=== PATIENT | male | born 1950 | race Caucasian/White ===

== ENCOUNTER 2016-10-24 04:53 | Observation (INO) | payer BC ==
[2016-10-20 08:38] VITALS: BMI 32.0
--- NOTE | 2016-10-20 09:19 | PAT Medication Instructions ---
Service Date Oct 20, 2016. Current Home Medication List Amlodipine (Norvasc), 5 MG PO QAM Atenolol (Tenormin), 50 MG PO QAM Cholecalciferol (Vitamin D3), 1 TAB PO PRN Lisinopril (Zestril), 20 MG PO QAM Spironolactone (Aldactone), 50 MG PO QAM Medication Instructions For Your Scheduled Surgery - Hold the following medications the morning of surgery: Spironolactone (Aldactone), 50 MG PO QAM Lisinopril (Zestril), 20 MG PO QAM Cholecalciferol (Vitamin D3), 1 TAB PO PRN - Take the following medications the morning of surgery with a sip of water: Amlodipine (Norvasc), 5 MG PO QAM Atenolol (Tenormin), 50 MG PO QAM If you have any questions please call us at [phone] or [phone] ( Gela) or [phone]
[2016-10-20 09:50] LABS: BASO % 0.3 %; BASO ABS # 0.02 K/uL (0-0.2); COMPLETE YES; EOS % 3.1 %; HEMATOCRIT 43.8 % (42-52); IG% 0.8 %; LYMPH ABS # 0.67 K/uL (1.2-3.4); MEAN CELL VOLUME 87.8 fL (80-100); MEAN CORPUSCULAR HEMOGLOBIN 30.3 pg (25-34); MEAN CORPUSCULAR HGB CONC 34.5 g/dl (32-36); MEAN PLATELET VOLUME 11.3 fL (7.4-10.4); NEUT % 72.8 %; PLATELET COUNT 109 K/uL (130-400); RED BLOOD COUNT 4.99 M/uL (4.7-6.1); WHITE BLOOD COUNT 6.08 K/uL (4.8-10.8)
[2016-10-20 10:44] LABS: ALB/GLOB RATIO 1.1 (0.9-2); BUN/CREATININE RATIO 18.3 (10-20); CALCIUM 9.6 mg/dl (8.5-10.1); CREATININE 1.4 mg/dl (0.60-1.40)
[2016-10-20 11:17] LABS: POTASSIUM 6.2 mmol/L (3.5-5.1)
[2016-10-20 12:29] LABS: BUN/CREATININE RATIO 15.2 (10-20); CALCIUM 9.3 mg/dl (8.5-10.1); CREATININE 1.6 mg/dl (0.60-1.40); POTASSIUM 5.2 mmol/L (3.5-5.1)
[2016-10-24] VITALS (10 sets, daily range): BP systolic 111–146; BP diastolic 68–89; PULSE 49–60; TEMP 36.7–36.9; O2SAT 92–100; Ht 180.3 cm; Wt 104.2 kg
[~2016-10-24] VITALS: Ht 180.3 cm; Wt 104.2 kg
[~2016-10-24 04:53] MED LIST: AMLO-110 PO; ATEN50TA8 PO; CHOL1000 PO; LISI-725 PO; SPIR50TA2 PO
[2016-10-24] MEDS ORDERED: CEFUROXIME IV 1,500 MG in DEXTROSE 5% 100ML IV SCH (06:00)
[2016-10-24] MEDS ORDERED: LACTATED RINGER'S 1000ML 1,000 ML IV SCH (06:00)
[2016-10-24 06:20] LABS: BUN/CREATININE RATIO 17.9 (10-20); CALCIUM 9.1 mg/dl (8.5-10.1); CREATININE 1.5 mg/dl (0.60-1.40); POTASSIUM 4.5 mmol/L (3.5-5.1)
[2016-10-24] MEDS ORDERED: PROPOFOL IV EMULSION 10 MG/ML 20 ML VIAL IV ONE (06:38)
[2016-10-24] MEDS ORDERED: DEXAMETHASONE SOD INJ 4 MG/ML VIAL ONE (06:38)
[2016-10-24] MEDS ORDERED: KETOROLAC TROMETHAMINE 30 MG/ML VIAL ONE (06:38)
[2016-10-24] MEDS ORDERED: ONDANSETRON INJ 2 MG/ML 2 ML VIAL ONE (06:38)
[2016-10-24] MEDS ORDERED: NEOSTIGMINE METHYLSULFATE 5 MG/5 ML SYR ONE (06:38)
[2016-10-24] MEDS ORDERED: ROCURONIUM BROMIDE 10 MG/ML 5 ML VIAL ONE (06:38)
[2016-10-24] MEDS ORDERED: GLYCOPYRROLATE INJ 0.2 MG/ML VIAL ONE (06:38)
[2016-10-24] MEDS ORDERED: MIDAZOLAM HCL 1 MG/ML 2ML VIAL ONE (06:39)
[2016-10-24] MEDS ORDERED: FENTANYL CITRATE INJ 50 MCG/1 ML 2 ML VIAL ONE (06:39)
--- NOTE | 2016-10-24 06:43 | History & Physical Bridge Note ---
H&P Re-Evaluation Bridge Note: I have examined the patient, reviewed the History & Physical and in the interval since the performance of the History & Physical I have noted the following changes of clinical significance: No changes noted
[2016-10-24] MEDS ORDERED: BUPIVACAINE 0.5 % 5 MG/1 ML MPF 30ML VIAL ONE (06:47)
[2016-10-24] MEDS ORDERED: CONRAY 60% 50 ML VIAL ONE (06:47)
[2016-10-24] MEDS ORDERED: ATROPINE SULFATE 1MG/2.5ML SYR ONE (07:30)
[2016-10-24] MEDS ORDERED: LIDOCAINE HCL 2% 2 ML VIAL (20MG/ML) ONE (07:36)
[2016-10-24] MEDS ORDERED: EpHEDrine SULFATE 50MG/5ML SYR ONE (07:39)
--- NOTE | 2016-10-24 08:07 | [facility] Post Operative Brief Note ---
Immediate Operative Summary Operative Date Oct 24, 2016. Pre-Operative Diagnosis Chronic Cholecystitis Post-Operative Diagnosis Chronic Cholecystitis, Umbilical Hernia, Gallbladder Mass/ polyp Procedure(s) Performed Laparascopic Cholecystectomy, Umbilical Hernia Repair Surgeon Dr. Kaveh Rouse Peanut Sheller Surgeon(s) Rafita Felix PA-C Estimated Blood Loss 10ml Findings 2 cm polyp/ mass tip of fundus, 1 cm umbilical hernia Specimens A.) Gallbladder and Contents B.) Hernia Contents Drains # 15 Rd CHERI to subhepatic space Anesthesia gen Complication(s) None Disposition Recovery Room / PACU
[2016-10-24] MEDS ORDERED: PROMETHAZINE HCL INJ 25 MG in SODIUM CHLORIDE 0.9% 50ML 50 ML IV PRN (08:15)
[2016-10-24] MEDS ORDERED: HYDROCODONE/ACETAMOPHEN 5/325MG TAB PO PRN (08:15)
[2016-10-24] MEDS ORDERED: HYDROmorphone INJ 1 MG/ML SYR IV PRN ×2 (08:15→08:30)
[2016-10-24] MEDS ORDERED: ONDANSETRON INJ 2 MG/ML 2 ML VIAL IV PRN ×2 (08:15→08:30)
[2016-10-24] MEDS ORDERED: HYDROmorphone INJ 0.5 MG/0.5 ML SYR IV PRN (08:15)
[2016-10-24] MEDS ORDERED: EpHEDrine SULFATE INJ 50 MG/ML AMP IV PRN (08:30)
[2016-10-24] MEDS ORDERED: IV FLUIDS COMPLETED PRN (08:30)
[2016-10-24] MEDS ORDERED: PROMETHAZINE HCL INJ 12.5 MG in SODIUM CHLORIDE 0.9% 50ML 50 ML IV PRN (08:30)
[2016-10-24] MEDS ORDERED: PROMETHAZINE HCL INJ 6.25 MG in SODIUM CHLORIDE 0.9% 50ML 50 ML IV PRN (08:30)
[2016-10-24] MEDS ORDERED: ATROPINE SULFATE 0.1 MG/ML 5ML SYR IV PRN (08:30)
[2016-10-24] MEDS: FENTANYL CITRATE INJ 50 MCG/1 ML 2 ML VIAL IV PRN ×2 (08:35→08:40)
--- NOTE | 2016-10-24 08:47 | OPERATIVE REPORT ---
DATE OF OPERATION: 10/24/2016 NAME OF THE OPERATION: Laparoscopic cholecystectomy with umbilical hernia repair. PREOPERATIVE DIAGNOSIS: Chronic cholecystitis. POSTOPERATIVE DIAGNOSES: Same with umbilical hernia and umbilical polyp/mass. STAFF SURGEON: Dr. Kaveh Rouse. CREDIT DEPARTMENT MANAGER: Rafita Felix PA-C ANESTHESIA: General. DESCRIPTION OF PROCEDURE: The patient was brought into the operating room and placed on the operating table in supine position. After appropriate anesthetic, pneumatic stockings and orogastric tube were placed. His abdomen was prepped and draped in usual fashion. The patient had evidence of a small umbilical hernia. His incisions were anesthetized using 0.5% plain Marcaine. Incision was made above the umbilicus, carrying dissection down, excising the hernia contents and then placing a port and producing pneumoperitoneum. An 11-mm port was placed at the umbilicus. Then under visualization, three 5-mm ports were placed, 1 cephalad and 2 laterally. At this point, the gallbladder was grasped and retracted. There was evidence of a mass/polyploid mass at the tip of the fundus of the gallbladder. This was all retracted. The gallbladder was aspirated of bile. Then, the dissection carried out at the debra hepatis, identifying the cystic duct, which was right at the junction of the gallbladder and docked. It was clipped and transected. It was somewhat wide at this area; however, the clips did cross the tissue. The cystic artery was identified, clipped and transected and then the gallbladder dissected away from the liver bed, also dissecting away the gallbladder, where the area of the polypoid mass. It did not appear to have any invasion through the capsule of the gallbladder. At this point, the gallbladder was placed in an Endobag. A 15-round Nolan-Stewart drain was placed through the lateral 5-mm port into the subhepatic space. This was because of the size of the duct. It was placed to suction bulb. It was secured using 3-0 nylon suture. All ports were removed. The gallbladder was removed through the umbilical site. I did have to enlarge the fascial defect because of the size of the polypoid mass. The umbilicus was dissected away from the fascia and then the defect, which was 1 cm, was closed using interrupted 0 Ethibond suture. The umbilicus reattached to the fascia using 2-0 chromic catgut suture and the skin reapproximated in all incisions using 4-0 nylon suture. The patient was transferred to recovery room in stable condition. I attest to the content of the Intraoperative Record and any orders documented therein. Any exceptio ns are noted below.
--- NOTE | 2016-10-24 08:58 | Anesthesiology Progress Note ---
Anesthesia Post Op Note Date & Time Oct 24, 2016 at 08:58 Vital Signs Pain Intensity: 3 Vital Signs Past 12 Hours Date Time Temp Pulse Resp B/P Pulse Ox O2 Delivery O2 Flow Rate FiO2 10/24/16 08:55 36.9 49 14 130/79 97 Nasal Cannula 2 10/24/16 08:45 50 17 125/82 97 Nasal Cannula 2 10/24/16 08:35 49 14 124/72 100 Nasal Cannula 2 10/24/16 08:25 47 12 124/77 100 Mask 10 10/24/16 08:15 49 17 129/79 100 Mask 10 10/24/16 08:07 37.0 60 18 130/85 100 Mask 10 10/24/16 05:35 36.9 58 20 140/89 100 Room Air Notes Mental Status: alert / awake / arousable, participated in evaluation Pt Amnestic to Procedure: Yes Nausea / Vomiting: adequately controlled Pain: adequately controlled Airway Patency, RR, SpO2: stable & adequate BP & HR: stable & adequate Hydration State: stable & adequate Anesthetic Complications: no major complications apparent
[2016-10-24] MEDS ORDERED: SPIRONOLACTONE 25 MG TAB PO SCH (09:00)
[2016-10-24] MEDS ORDERED: LISINOPRIL 20 MG TAB PO SCH (09:00)
[2016-10-24] MEDS: KETOROLAC TROMETHAMINE 30 MG/ML VIAL IV. SCH ×3 (10:09→21:05)
[2016-10-24] MEDS: LACTATED RINGER'S 1000ML 1,000 ML IV SCH ×2 (10:20→21:04)
[2016-10-24] MEDS: HYDROCODONE/ACETAMOPHEN 5/325MG TAB PO PRN ×2 (11:54→13:28)
--- NOTE | 2016-10-24 12:23 | Medical Consult ---
Consultation Date of Consultation: Oct 24, 2016. Attending Physician: Kaveh Rouse M.D. Reason for Consultation: postop medical management History of Present Illness This is a 66 y/o male with history of HTN who was seen in consultation after undergoing laparoscopic cholecystectomy by Dr. Rouse today. Patient states he "feels good". Postop abdominal pain is controlled while lying still. He reports recent dizziness upon standing, but not feeling dizzy currently. Patient's HR was in 50's when he arrived this am with EKG showing 1st deg AV block rate 53. HR dropped to high 40's in postop period and is now running low 50's. Patient states his baseline heart rate is in 50s. Prior EKG in [facility] 10/2015 showed SB with 1st deg AV block rate 55, incomplete RBBB, LAFB. Postop BP was borderline in 90s systolic x 1. He states baseline BP is 110s-130s systolic. Patient took his usual atenolol 50 mg this morning. He exercises on the elliptical regularly. Has chronic bilat calf cramps. Denies fever, chills, URI symptoms, cough, chest pain, palpitations, syncope, nausea, vomiting, diarrhea, urinary change. Of note patient's recent outpatient labs showed hyperkalemia (K+ of 6.2 on 10/20/16) which normalized to 4.5 today. He usually takes lisinopril and spironolactone which were held today. Outpatient labs also show creatinine trending up over past year from 1.2 in 10/2015 to ~1.4 recently. He states 1 month ago lisinopril was cut in half and Norvasc [address] Box of nephrology. Past Medical/Surgical History Medical Problems: (1) HTN (hypertension) Status: Chronic (2) Malignant lymphoma Status: Chronic (3) Renal stone Status: Chronic Surgical Problems: (1) H/O lymph node biopsy Status: Chronic (2) S/P appendectomy Status: Chronic (3) S/P cystoscopy Status: Chronic (4) S/P tonsillectomy Status: Chronic (5) S/p vein procedure Status: Chronic Family History Diabetes mellitus BROTHER FH: CAD (coronary artery disease) FATHER Social History Smoking Status: Never Smoker Alcohol Use: occasionally Drug Use: none Marital Status: Housing Status: lives with significant other Occupation Status: employed Allergies Coded Allergies: No Known Allergies (Unverified , 10/24/16) Current Inpatient Medications Current Inpatient Medications Medications (Trade) Dose Ordered Sig/Denise Route Start Time Stop Time Status Last Admin Dose Admin Cefuroxime Sodium/ Dextrose (Zinacef Iv/D5 100ml) 115 ml @ 230 mls/hr PREOP IV 10/24/16 06:00 10/25/16 05:59 10/24/16 06:59 230 MLS/HR Amlodipine Besylate (Norvasc Tab) 5 mg QAM PO 10/25/16 09:00 11/24/16 08:59 Atenolol (Tenormin Tab) 50 mg QAM PO 10/25/16 09:00 11/24/16 08:59 Lisinopril (Zestril Tab) 20 mg QAM PO 10/24/16 09:00 11/23/16 08:59 Spironolactone 50 mg 50 mg QAM PO 10/24/16 09:00 11/23/16 08:59 Lactated Ringer's 1,000 ml @ 75 mls/hr [id number] IV 10/24/16 08:10 11/23/16 08:09 10/24/16 10:20 75 MLS/HR Cefuroxime Sodium/ Dextrose (Zinacef Iv/D5 100ml) 115 ml @ 200 mls/hr Q8 IV 10/24/16 14:00 10/25/16 13:59 Hydromorphone HCl (Dilaudid Inj) 0.5 mg Q3H PRN IV 10/24/16 08:15 11/07/16 08:14 Hydromorphone HCl (Dilaudid Inj) 1 mg Q3H PRN IV 10/24/16 08:15 11/07/16 08:14 Acetaminophen/ Hydrocodone Bitart ([place] 5/325 Tab) 1 tab Q4 PRN PO 10/24/16 08:15 11/07/16 08:14 Acetaminophen/ Hydrocodone Bitart 2 tab 2 tab Q4 PRN PO 10/24/16 08:15 11/07/16 08:14 Promethazine HCl/ Sodium Chloride (Phenergan Inj/ Nss 50ml) 51 ml @ 204 mls/hr Q6H PRN IV 10/24/16 08:15 11/23/16 08:14 Ondansetron HCl (Zofran Inj) 4 mg Q6H PRN IV 10/24/16 08:15 11/23/16 08:14 Ketorolac Tromethamine 30 mg 30 mg Q6H IV. 10/24/16 10:00 10/26/16 04:01 10/24/16 10:09 30 MG Promethazine HCl/ Sodium Chloride (Phenergan Inj/ Nss 50ml) 50.5 ml @ 204 mls/hr Q6H PRN IV 10/24/16 08:30 11/23/16 08:29 Miscellaneous (Iv Fluids Completed) 1 ea PRN PRN N/A 10/24/16 08:30 10/24/17 08:29 Fentanyl Citrate (Fentanyl Inj) 50 mcg Q5M PRN IV 10/24/16 08:30 10/24/16 13:30 10/24/16 08:40 50 MCG Hydromorphone HCl (Dilaudid Inj) 0.5 mg Q5M PRN IV 10/24/16 08:30 10/24/16 13:30 Ondansetron HCl 4 mg 4 mg ONE PRN IV 10/24/16 08:30 10/24/16 13:30 Promethazine HCl/ Sodium Chloride (Phenergan Inj/ Nss 50ml) 50.25 ml @ 202 mls/hr ONE PRN IV 10/24/16 08:30 10/24/16 13:30 Ephedrine Sulfate (EpHEDrine SULFATE INJ) 5 mg Q5M PRN IV 10/24/16 08:30 10/24/16 13:30 Atropine Sulfate (Atropine Sulfate 0.1MG/Ml Inj) 0.5 mg Q1M PRN IV 10/24/16 08:30 10/24/16 13:30 Review of Systems Ten point ROS performed with pertinent positives and negatives noted in HPI. Physical Exam Date Time Temp Pulse Resp B/P Pulse Ox O2 Delivery O2 Flow Rate FiO2 10/24/16 11:33 36.7 53 18 133/79 95 Nasal Cannula 2.0 10/24/16 10:38 52 18 119/74 94 Nasal Cannula 2.0 10/24/16 10:00 36.7 52 16 114/70 94 Nasal Cannula 2.0 10/24/16 09:30 93 Nasal Cannula 2.0 10/24/16 09:30 36.7 49 16 111/68 93 Nasal Cannula 2.0 10/24/16 09:30 93 Nasal Cannula 2.0 10/24/16 09:15 50 16 99/64 94 Nasal Cannula 2 10/24/16 09:05 47 12 107/68 94 Nasal Cannula 2 10/24/16 08:55 36.9 49 14 130/79 97 Nasal Cannula 2 10/24/16 08:45 50 17 125/82 97 Nasal Cannula 2 10/24/16 08:35 49 14 124/72 100 Nasal Cannula 2 10/24/16 08:25 47 12 124/77 100 Mask 10 10/24/16 08:15 49 17 129/79 100 Mask 10 10/24/16 08:07 37.0 60 18 130/85 100 Mask 10 10/24/16 05:35 36.9 58 20 140/89 100 Room Air General Appearance: WD/WN, no apparent distress, + pertinent finding (pleasant cooperative 66 year old male, lying in bed, no distress, at bedside) Head: normocephalic, atraumatic Eyes: normal inspection, PERRL, EOMI ENT: hearing grossly normal, pharynx normal Neck: supple, trachea midline Respiratory/Chest: lungs clear, normal breath sounds, no respiratory distress, no accessory muscle use Cardiovascular: no murmur, + bradycardia (regular) Abdomen/GI: normal bowel sounds, non tender, soft, + pertinent finding ( dressings intact s/p lap cristian; drain in RUQ with blood tinged serous drainage) Extremities/Musculoskelatal: no calf tenderness, no pedal edema, + pertinent finding (SCD's in place) Neurologic/Psych: alert, normal mood/affect, oriented x 3 Skin: normal color, warm/dry Laboratory Results Last 24 Hours Test 10/24/16 05:38 Sodium Level 142 mmol/L Potassium Level 4.5 mmol/L Chloride Level 109 mmol/L Carbon Dioxide Level 24 mmol/L Anion Gap 9.0 mmol/L Blood Urea Nitrogen 27 mg/dl Creatinine 1.50 mg/dl Est Creatinine Clear Calc Drug Dose 61.1 ml/min Estimated GFR () 56.2 Estimated GFR (Non- 48.5 BUN/Creatinine Ratio 17.9 Random Glucose 119 mg/dl Calcium Level 9.1 mg/dl Assessment & Plan CHRONIC CHOLECYSTITIS S/p lap cristian by Dr. Rouse POD #0 Management per general surgery BRADYCARDIA HR dropped to high 40s postoperatively -> improved to 50s Baseline HR in 50s likely due to atenolol and regular exercise EKG showed sinus steven with 1st degree AVB- also present on prior EKG in Epic Will decrease atenolol from 50 ->25 mg daily with holding parameters HYPERTENSION Had 1 borderline BP reading (90s systolic) postoperatively Will hold amlodipine, lisinopril, spironolactone for now Continue atenolol at reduced dose Monitor BP RECENT HYPERKALEMIA 10/20 K+ was 6.2 ->5.2 on repeat later that morning Resolved to 4.5 today Likely secondary to medications Lisinopril and spironolactone are on hold Low potassium diet Monitor CKD STAGE III Creat at 1.5; stable from recent baseline Monitor renal function NON HODGKIN LYMPHOMA Expectant management until symptomatic as per Dr. Price's note Continue f/u with hem/onc as outpatient DVT PROPHYLAXIS SCD's as ordered by general surgery DISPOSITION Per general surgery Follows with Dr. Montez for primary care Patient seen in collaboration with Dr. Pelaez. Please see his addendum. Attending Addendum Pt was seen and examined. Agreed with Heather RODAS' s physical exam, assessment and Plan. 66 y/o male with history of HTN who was seen in consultation after undergoing laparoscopic cholecystectomy by Dr. Rouse today. Pt said that he feels fine. Pt said that his BP has been management by Dr. Box. in his last visit lisinopril was decrease by half due to hyperkalemia and Norvasc was started. Pt said that recent he has been feeling dizzy upon standing. He said that his HR usually runs in the 50's at baseline. Denies any chest pain, palpitation, dizziness and SOB. General- No acute distress Head- atraumatic Eyes- PERRL, EOMI ENT- oropharynx clear Neck- supple, no JVD Lungs- clear to auscultation and percussion Heart- Bradycardia, no murmur Abdomen- normal bowel sounds, soft, RUQ tenderness from the surgery Extremities- no calf tenderness A/p CHRONIC CHOLECYSTITIS S/p lap cristian day #[address] Rouse tolerated diet well incentive spirometry pain control BRADYCARDIA As per pt HR usually runs in the 50's HR dropped to high 40s postoperatively possible related to sedation EKG showed sinus steven with 1st degree AVB consider to decrease atenolol to 25mg HTN On atenolol, amlodipine, lisinopril and spironolactone Pt said that BP has been running good and sometime in the low side might be overtreated consider to decrease either lisinopril or spironolactone or possible d/c due to hyperkalemia will monitor BP closely Please refer to Heather RODAS's documentation for other problems. Thank you for the consult. We will follow the patient with you during the hospital course. Toi Pelaez MD
[2016-10-24] MEDS: CEFUROXIME IV 1,500 MG in DEXTROSE 5% 100ML 100 ML IV SCH ×2 (14:08→21:10)
[2016-10-24] MEDS ORDERED: HYDR-5688 PO (14:34)
--- NOTE | 2016-10-24 14:40 | Discharge Instructions ---
Discharge Instructions Date of Service Oct 24, 2016. Admission Reason for Admission: Biliary Colic Discharge Discharge Diagnosis / Problem: chronic cholecystitis, umbilical hernia Discharge Goals Goal(s): Decrease discomfort, Improve function, Improve disease control Activity Recommendations Activity Limitations: as noted below Lifting Limitations: no more than 10 pounds Exercise/Sports Limitations: until after follow-up appointment May Resume Sexual Activity: when tolerated Shower/Bathe: tomorrow Driving or Machine Use: resume 3 days after discharge SPECIAL CARE INSTRUCTIONS: * Cover incisions and change daily for comfort/drainage. * Empty drain 2-3 times per day and record. * May use ibuprofen for pain as tolerated. * Expect some swelling and bruising. Call your doctor if: * Temperature above 101 degrees * Pain not relieved by pain medicine ordered * There is increased drainage or redness from any incision * You have any unanswered questions or concerns [phone]. FOLLOW UP VISIT: If not already scheduled, please call the office for a follow-up visit. for Saturday 10/28- drain removal OFFICE PHONE NUMBER: Dr. Rouse Office . Current Hospital Diet Patient's current hospital diet: Regular Diet, AHA Diet (Heart Healthy), Low Potassium Diet (2g K) Discharge Diet Recommended Diet: Regular Diet Procedures Procedures Performed: Laparascopic Cholecystectomy, Umbilical Hernia Repair Pending Studies Studies pending at discharge: no Medical Emergencies . Who to Call and When: Medical Emergencies: If at any time you feel your situation is an emergency, please call 911 immediately. . Non-Emergent Contact Non-Emergency issues call your: Primary Care Provider, Surgeon . "Provider Documentation" section prepared by Kaveh Rouse. VTE Core Measure Inpt VTE Proph given/why not?: SCD's
[2016-10-25 03:21] VITALS: BP 133/82; PULSE 56; TEMP 36.7; O2SAT 93
[2016-10-25] MEDS: KETOROLAC TROMETHAMINE 30 MG/ML VIAL IV. SCH (04:09)
[2016-10-25 04:44] LABS: HEMATOCRIT 36.3 % (42-52); MEAN CELL VOLUME 85.6 fL (80-100); MEAN CORPUSCULAR HEMOGLOBIN 30.7 pg (25-34); MEAN CORPUSCULAR HGB CONC 35.8 g/dl (32-36); RED BLOOD COUNT 4.24 M/uL (4.7-6.1); WHITE BLOOD COUNT 9.16 K/uL (4.8-10.8)
[2016-10-25 05:05] LABS: ALB/GLOB RATIO 1.2 (0.9-2); BUN/CREATININE RATIO 19.7 (10-20); CALCIUM 8.6 mg/dl (8.5-10.1); POTASSIUM 5.2 mmol/L (3.5-5.1)
[2016-10-25 05:25] LABS: MEAN PLATELET VOLUME 11.1 fL (7.4-10.4); PLATELET COUNT 98 K/uL (130-400); PLT ESTIMATE DECREASED
[2016-10-25] MEDS: CEFUROXIME IV 1,500 MG in DEXTROSE 5% 100ML 100 ML IV SCH (05:26)
[2016-10-25 07:27] VITALS: BP 144/83; PULSE 55; TEMP 36.5; O2SAT 97
--- NOTE | 2016-10-25 08:24 | DISCHARGE SUMMARY ---
PRINCIPAL DIAGNOSIS: Chronic cholecystitis. Also gallbladder mass and umbilical hernia. PROCEDURES: The patient underwent laparoscopic cholecystectomy with umbilical hernia repair. HISTORY OF PRESENT ILLNESS: The patient is a 66-year-old male who had been having some abdominal pain and on workup was found with sludge and stones in his gallbladder. He also has a small umbilical hernia. HOSPITAL COURSE: The patient was brought in the hospital on 10/24/2016 where he underwent laparoscopic cholecystectomy with umbilical hernia repair. The patient had what appeared to be a gallbladder polyp. Pathology is pending. He has done quite well and is ready for discharge today to be followed in the surgical clinic in approximately 3 days for drain removal.
[2016-10-25 08:31] VITALS: BP 144/83; PULSE 55; TEMP 36.5; O2SAT 97
[2016-10-25 08:37] VITALS: PULSE 56
[2016-10-25] MEDS ORDERED: AMLODIPINE BESYLATE 5 MG TAB PO SCH (09:00)
--- NOTE | 2016-10-25 10:16 | Progress Note ---
Internal Med Progress Note Date of Service: Oct 25, 2016. Provider Documentation: SUBJECTIVE: Patient is seen and examined at bedside. States pain is controlled. Denies any dizziness, chest pain, palpitations. Offers no complaints. OBJECTIVE: Vital Signs-as noted below General Appearance: WD/WN, no apparent distress Head: normocephalic, atraumatic Eyes: normal inspection, PERRL, EOMI ENT: hearing grossly normal, pharynx normal Neck: supple, trachea midline Respiratory/Chest: lungs clear, normal breath sounds, no respiratory distress, no accessory muscle use Cardiovascular: no murmur, + bradycardia Abdomen/GI: normal bowel sounds, non tender, soft, + pertinent finding ( dressings intact s/p lap cristian, +drian) Extremities/Musculoskelatal: no calf tenderness, no pedal edema Neurologic/Psych: alert, normal mood/affect, oriented x 3 Skin: normal color, warm/dry Lab data as noted below. ASSESSMENT & PLAN: CHRONIC CHOLECYSTITIS S/p lap cristian by Dr. Rouse POD #1 General surgery on board Planned to be discharged home today BRADYCARDIA HR dropped to high 40s postoperatively -> improved to 50-55 EKG showed sinus steven with 1st degree AVB- also noted on prior EKG Decreased atenolol from 50 ->>>25 mg daily HTN: controlled during hospital stay Continue amlodipine 5mg daily, atenolol 25mg daily (Atenolol reduced from 50mg secondary to bradycardia) Hold lisinopril, spironolactone for now (Patient has hyperkalemia) Monitor BP Advised to recheck BMP on 10/27/16 as outpatient and follow up with PCP Advised to check BP/Pulse daily and follow up with PCP for BP meds adjustment HYPERKALEMIA 10/20 K+ was 6.2 ->5.2>>5.2 Likely secondary to medications Hold Lisinopril and spironolactone for now Advised to recheck BMP on 10/27/16 as outpatient and follow up with PCP CKD STAGE III Monitor renal function Stable NON HODGKIN LYMPHOMA Expectant management until symptomatic as per Dr. Price's note Continue f/u with hem/onc as outpatient DVT PX: Per general surgery DISPOSITION: Advised to follow up with PCP in 1 week with labs for BP medication adjustment and for monitoring potassium levels Vital Signs: Date Time Temp Pulse Resp B/P Pulse Ox O2 Delivery O2 Flow Rate FiO2 10/25/16 08:37 56 10/25/16 08:31 36.5 55 16 97 Room Air 10/25/16 07:27 36.5 55 16 144/83 97 Room Air 10/25/16 03:21 36.7 56 16 133/82 93 Room Air 10/24/16 23:30 Room Air 10/24/16 23:00 36.7 53 16 126/77 92 Room Air 10/24/16 20:47 93 Nasal Cannula 2.0 10/24/16 20:19 36.7 59 18 146/83 96 Room Air 10/24/16 16:08 36.7 60 18 135/77 92 Room Air 10/24/16 12:26 36.7 52 19 125/75 93 Nasal Cannula 2.0 10/24/16 11:33 36.7 53 18 133/79 95 Nasal Cannula 2.0 10/24/16 10:38 52 18 119/74 94 Nasal Cannula 2.0 Lab Results: Results Past 24 Hours Test 10/25/16 04:37 Range/Units White Blood Count 9.16 4.8-10.8 K/uL Red Blood Count 4.24 4.7-6.1 M/uL Hemoglobin 13.0 14.0-18.0 g/dL Hematocrit 36.3 42-52 % Mean Corpuscular Volume 85.6 80-100 fL Mean Corpuscular Hemoglobin 30.7 25-34 pg Mean Corpuscular Hemoglobin Concent 35.8 32-36 g/dl RDW Standard Deviation 38.4 36.4-46.3 fL RDW Coefficient of Variation 12.4 11.5-14.5 % Platelet Count 98 130-400 K/uL Mean Platelet Volume 11.1 7.4-10.4 fL Platelet Estimate DECREASED Sodium Level 136 136-145 mmol/L Potassium Level 5.2 3.5-5.1 mmol/L Chloride Level 103 98-107 mmol/L Carbon Dioxide Level 25 21-32 mmol/L Anion Gap 8.0 3-11 mmol/L Blood Urea Nitrogen 39 7-18 mg/dl Creatinine 2.00 0.60-1.40 mg/dl Est Creatinine Clear Calc Drug Dose 45.8 ml/min Estimated GFR () 39.7 Estimated GFR (Non- 34.3 BUN/Creatinine Ratio 19.7 10-20 Random Glucose 123 70-99 mg/dl Calcium Level 8.6 8.5-10.1 mg/dl Total Bilirubin 0.4 0.2-1 mg/dl Direct Bilirubin 0.1 0-0.2 mg/dl Aspartate Amino Transf (AST/SGOT) 32 15-37 U/L Alanine Aminotransferase (ALT/SGPT) 36 12-78 U/L Alkaline Phosphatase 43 45-117 U/L Total Protein 6.6 6.4-8.2 gm/dl Albumin 3.6 3.4-5.0 gm/dl Globulin 3.0 2.5-4.0 gm/dl Albumin/Globulin Ratio 1.2 0.9-2
--- NOTE | 2016-10-25 10:43 | Anesthesiology Progress Note ---
Anesthesia Post Op Note Date & Time Oct 25, 2016 at 10:43 Vital Signs Pain Intensity: 5.0 Vital Signs Past 12 Hours Date Time Temp Pulse Resp B/P Pulse Ox O2 Delivery O2 Flow Rate FiO2 10/25/16 08:37 56 10/25/16 08:31 36.5 55 16 97 Room Air 10/25/16 07:27 36.5 55 16 144/83 97 Room Air 10/25/16 03:21 36.7 56 16 133/82 93 Room Air 10/24/16 23:30 Room Air 10/24/16 23:00 36.7 53 16 126/77 92 Room Air Notes Mental Status: alert / awake / arousable, participated in evaluation Pt Amnestic to Procedure: Yes Nausea / Vomiting: adequately controlled Pain: adequately controlled Airway Patency, RR, SpO2: stable & adequate BP & HR: stable & adequate Hydration State: stable & adequate Anesthetic Complications: no major complications apparent
== END 2016-10-25 11:25 | disposition home or self-care (01) ==
LOC: ENRESERVDT → ENRESERVTM → C.ACU 04:53 → C.MSW 08:15
PROVIDERS: ADMIT Surgery; ATTEND Surgery
DX: K81.1 Chronic cholecystitis (principal); K87 Disorders of gallbladder, biliary tract and pancreas in diseases classified elsewhere; K42.9 Umbilical hernia without obstruction or gangrene; K80.50 Calculus of bile duct without cholangitis or cholecystitis without obstruction; Z82.49 Family history of ischemic heart disease and other diseases of the circulatory system; Z83.3 Family history of diabetes mellitus

== ENCOUNTER → 2016-12-16 | Outpatient (CLI) | payer BC ==
[~2016-12-16] MED LIST changes: +HYDR-5688 PO
--- NOTE | 2016-12-16 15:05 | DIAGNOSTIC IMAGING REPORT ---
LEFT KNEE 1 OR 2 VIEWS ROUTINE CLINICAL HISTORY: Left knee pain pain COMPARISON: None. DISCUSSION: Moderate degenerative change medial joint compartment and to lesser extent patellofemoral joint. 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 Small synovial calcification of the suprapatellar bursa. No acute bony abnormality. There is no evidence for soft tissue swelling. IMPRESSION: Mild/moderate degenerative change medial joint compartment as well as patellofemoral joint. No acute process. Electronically signed by: Jam Juan M.D. 12/16/2016 3:04 PM Dictated Date/Time: 12/16/2016 3:03 PM
== END | disposition home or self-care (01) ==
LOC: C.RADBC 14:43
PROVIDERS: ATTEND Internal Medicine
DX: M25.562 Pain in left knee (principal)

== ENCOUNTER → 2017-06-14 | Outpatient (CLI) | payer BC ==
[~2017-06-14] MED LIST changes: -HYDR-5688 PO
== END | disposition home or self-care (01) ==
LOC: C.RDSM 12:01
PROVIDERS: ATTEND Orthopaedic Surgery
DX: R52 Pain, unspecified (principal)

== ENCOUNTER → 2017-10-16 | Outpatient (CLI) | payer OTHER ==
--- NOTE | 2017-10-16 11:03 | DIAGNOSTIC IMAGING REPORT ---
[facility]UB CLINICAL HISTORY: Z87.442 History of kidney [id number] nephrocalcinosis COMPARISON STUDY: 05/13/2010 FINDINGS: Unchanging right renal nephrocalcinosis. No significant left renal calcifications. Nonobstructive bowel pattern. Calcification overlying the sacrum is unchanged and potentially relates to a benign bone island. There are several pelvic vascular calcifications. IMPRESSION: 1. Unchanged calcifications overlying the right kidney.. 2. No additional or new calcifications. 3. Unchanging calcification overlying the medial right sacrum felt to represent a benign bone island. The above report was generated using voice recognition software. It may contain grammatical, syntax or spelling errors. Electronically signed by: Jam Juan M.D. 10/16/2017 11:02 AM Dictated Date/Time: 10/16/2017 11:00 AM
== END | disposition home or self-care (01) ==
LOC: C.RAD1850 10:44
PROVIDERS: ATTEND Physician Assistant
DX: Z87.442 Personal history of urinary calculi (principal)

== ENCOUNTER → 2017-10-23 | Outpatient (CLI) | payer OTHER ==
--- NOTE | 2017-10-23 09:36 | DIAGNOSTIC IMAGING REPORT ---
(RENAL)RETROPERITON COMP HISTORY: Nephrocalcinosis Z87.442 History of kidney [id number] COMPARISON: None. FINDINGS: Right kidney: Maximum dimension 12.1 cm. Several right renal cyst seen the largest measures 3.0 x 3.2 cm. Several nonobstructing renal calcifications. Largest of these measures approximately 3 mm. Normal corticomedullary differentiation and cortical thickness. Left kidney: Maximum dimension 10.0 cm. Several cysts are present measuring up to 8 x 7 cm at the upper pole. Several nonobstructing left renal cortical calcifications measuring up to 5 mm. Normal corticomedullary differentiation and cortical thickness. Bladder: No bladder wall thickening. The bilateral ureteral jets were identified. IMPRESSION: 1. Multiple bilateral renal cysts. 2. No evidence for hydronephrosis. 3. Several nonobstructing renal calcifications bilaterally. The above report was generated using voice recognition software. It may contain grammatical, syntax or spelling errors. Electronically signed by: Jam Juan M.D. 10/23/2017 9:35 AM Dictated Date/Time: 10/23/2017 9:32 AM
== END | disposition home or self-care (01) ==
LOC: C.ULTRBC 08:08
PROVIDERS: ATTEND Physician Assistant
DX: N28.1 Cyst of kidney, acquired (principal); N20.0 Calculus of kidney; Z87.442 Personal history of urinary calculi

== ENCOUNTER → 2017-11-13 | Outpatient (CLI) | payer BC ==
[2017-11-13 14:11] LABS: BLOOD UREA NITROGEN 19 mg/dl (7-18); CALCIUM 9.4 mg/dl (8.5-10.1); CARBON DIOXIDE 22 mmol/L (21-32); CREATININE 1.32 mg/dl (0.60-1.40); GLUCOSE 118 mg/dl (70-99); POTASSIUM 4.2 mmol/L (3.5-5.1); SODIUM 136 mmol/L (136-145)
== END | disposition home or self-care (01) ==
LOC: C.LABBC 10:02
PROVIDERS: ATTEND Physician Assistant
DX: Z00.00 Encounter for general adult medical examination without abnormal findings (principal); R39.9 Unspecified symptoms and signs involving the genitourinary system